=== PATIENT | female | born 1985 ===

== ENCOUNTER → 2024-01-15 11:22 | Outpatient (REF) | payer OTHER, SELFPAY ==
[2024-01-15 13:51] LABS: Hepatitis B Surface Antibody Negative
[2024-01-15 19:04] LABS: Rubella Positive
[2024-01-17 13:37] LABS: Quantiferon Mitogen minus NIL 8.84 IU/mL; Quantiferon NIL 0.01 IU/mL; Quantiferon Plus TB1 minus NIL 0.01 IU/mL (0.00-0.34); Quantiferon TB Gold Plus Negative (Negative)
[2024-01-18 17:02] LABS: Mumps Virus IgG Negative; Rubeola (Measles) IgG Negative
[2024-01-18 18:42] LABS: Varicella Zoster IgG (VZV) Positive
== END ==
LOC: OHS 11:22
PROVIDERS: ATTENDING PHYSICIAN Nurse Practitioner Family
DX: Z23 Encounter for immunization (principal)
CPT/HCPCS: 36415; 86480; 86706; 86735; 86762; 86765; 86787